=== PATIENT | male | born 1970 | race Caucasian/White ===

== ENCOUNTER → 2018-08-04 | Outpatient (CLI) | payer OTHER ==
[2015-06-13 15:44] VITALS: BP 130/85
[~2018-08-04] MED LIST: ASPI325T11 PO; ATORVASTATIN CA80 MG PO; DULO60CA6 PO; FENO54TA PO; INSU100I13 SQ; LISI10TA2 PO; OMEG1CAP6 PO; PANT40TA5 PO; PREG75CA PO
--- NOTE | 2018-08-04 13:57 | KCIC ---
Right breast ultrasound: Reason for examination: Right breast lump. Ultrasound examination of the right breast was performed with attention to the area of clinical concern at the 9:00 position and at the right axilla. In the 9:00 position 4 cm from the nipple, there is a 1.3 x 0.6 cm hyperechoic structure consistent with a lipoma. No other focal cystic or solid nodules are seen. No abnormal appearing lymph nodes are seen in the axilla. IMPRESSION: 1.3 cm hyperechoic lesion consistent with a lipoma at the 9:00 position corresponds to the area of clinical concern. BI-RADS Category 2: Benign. "Our facility is accredited by the [employer] Mammography [employer]." Ultrasound chest: Ultrasound examination of the left lateral chest wall was performed with attention to the area of clinical concern. Ultrasound examination of the left lateral chest wall shows presence of a 1.9 x 1.7 cm hyperechoic lesion consistent with a lipoma. No other cystic or solid lesions are seen. IMPRESSION: 1.9 x 1.7 cm hyperechoic lesion consistent with a lipoma in the area of concern in the lateral left chest wall. Electronically signed by: Heidi Mishra MD (08/04/2018 1:54 PM) [id number]
== END | disposition home or self-care (01) ==
LOC: KCIC US 12:51
PROVIDERS: ATTEND Family Medicine
DX: N63.13 Unspecified lump in the right breast, lower outer quadrant (principal)
CPT/HCPCS: 76604; 76641